=== PATIENT | female | born 1965 | race Caucasian/White ===

== ENCOUNTER 2022-02-13 10:03 | Outpatient (CLI) | payer BC | END 2022-02-13 10:04 | disposition home or self-care (01) | LOC: NM 10:03 | PROVIDERS: ATTEND Internal Medicine | DX: G95.9 Disease of spinal cord, unspecified (principal) | CPT/HCPCS: 78306; A9503 ==

== ENCOUNTER 2022-03-04 10:14 | Outpatient (CLI) | payer BC | END 2022-03-04 10:15 | disposition home or self-care (01) | LOC: BICMAMMO 10:14 | PROVIDERS: ATTEND Internal Medicine | DX: N64.9 Disorder of breast, unspecified (principal); C79.51 Secondary malignant neoplasm of bone; N63.11 Unspecified lump in the right breast, upper outer quadrant; N63.21 Unspecified lump in the left breast, upper outer quadrant | CPT/HCPCS: 77066; G0279 ==

== ENCOUNTER → 2022-03-05 | Day surgery (SDC) | payer BC | END | disposition home or self-care (01) | LOC: BICULT 12:42 | PROVIDERS: ATTEND Internal Medicine | PROC: 0H9U3ZX Drainage of Left Breast, Percutaneous Approach, Diagnostic (ICD-10-PCS; principal; 2022-03-05) | DX: C50.412 Malignant neoplasm of upper-outer quadrant of left female breast (principal); N60.32 Fibrosclerosis of left breast; Z17.0 Estrogen receptor positive status [ER+] | CPT/HCPCS: 19083; 19084; 88305; 88342 ==

== ENCOUNTER 2022-07-10 08:39 | Outpatient (CLI) | payer BC | END 2022-07-10 08:40 | disposition home or self-care (01) | LOC: SCSMRI 08:39 | PROVIDERS: ATTEND Internal Medicine | DX: C79.51 Secondary malignant neoplasm of bone (principal); C50.919 Malignant neoplasm of unspecified site of unspecified female breast; M47.815 Spondylosis without myelopathy or radiculopathy, thoracolumbar region; M47.816 Spondylosis without myelopathy or radiculopathy, lumbar region; M47.817 Spondylosis without myelopathy or radiculopathy, lumbosacral region; M25.78 Osteophyte, vertebrae; M51.35 Other intervertebral disc degeneration, thoracolumbar region; M51.36 Other intervertebral disc degeneration, lumbar region; M51.37 Other intervertebral disc degeneration, lumbosacral region; M51.27 Other intervertebral disc displacement, lumbosacral region | CPT/HCPCS: 72158 ==

== ENCOUNTER 2022-08-31 08:40 | Outpatient (CLI) | payer BC ==
[2022-08-31] MEDS ORDERED: Magnevist 469MG/ML 20 ML VIAL ONE (09:25)
== END 2022-08-31 08:41 | disposition home or self-care (01) ==
LOC: MRI 08:40
PROVIDERS: ATTEND Internal Medicine
DX: C50.919 Malignant neoplasm of unspecified site of unspecified female breast (principal); C79.51 Secondary malignant neoplasm of bone; H81.4 Vertigo of central origin; R51.9 Headache, unspecified; J32.3 Chronic sphenoidal sinusitis
CPT/HCPCS: 70553; A9579

== ENCOUNTER 2022-09-04 10:05 | Outpatient (CLI) | payer BC ==
[2022-09-04] MEDS ORDERED: Iopamidol 370 76% 100 ML VIAL ONE (10:56)
== END 2022-09-04 10:06 | disposition home or self-care (01) ==
LOC: NM 10:05
PROVIDERS: ATTEND Internal Medicine
DX: C50.919 Malignant neoplasm of unspecified site of unspecified female breast (principal); C79.51 Secondary malignant neoplasm of bone; R91.1 Solitary pulmonary nodule
CPT/HCPCS: 71260; 74177; 78306; A9503

== ENCOUNTER 2022-12-10 09:40 | Outpatient (CLI) | payer BC ==
[2022-12-10] MEDS ORDERED: Magnevist 469MG/ML 20 ML VIAL ONE (13:46)
== END 2022-12-10 09:41 | disposition home or self-care (01) ==
LOC: MRI 09:40
PROVIDERS: ATTEND Internal Medicine
DX: C50.919 Malignant neoplasm of unspecified site of unspecified female breast (principal); C79.51 Secondary malignant neoplasm of bone; R90.89 Other abnormal findings on diagnostic imaging of central nervous system
CPT/HCPCS: 70553; A9579

== ENCOUNTER 2022-12-11 07:32 | Inpatient (IN) | payer BC ==
[2022-12-11 07:59] LABS: Hematocrit 26.7 % (36.0-47.0); Hemoglobin 9.9 g/dL (12.0-16.0); Mean Corpuscular HGB CONC 37.1 g/dL (32.0-36.0); Mean Corpuscular Hemoglobin 38.7 pg (27.0-31.0); Mean Corpuscular Volume 104.3 fl (78.0-98.0); Platelet Count 175 10x3/uL (130-400); RBC Distribution Width 14.2 % (11.5-14.5); Red Blood Cell (RBC) Count 2.56 mill/uL (4.20-5.40); White Blood Cell (WBC) Count 3.5 10x3/uL (4.8-10.8)
[2022-12-11 08:07] LABS: Delete Auto Diff?? YES; Manual Diff?? YES
[2022-12-11 08:24] LABS: ALT (SGPT) 11 U/L (8-55); AST (SGOT) 20 U/L (5-34); Albumin 4.3 g/dL (3.5-5.0); Alkaline Phosphatase 60 U/L (40-110); Anion Gap 25 mmol/L (10-20); BUN (Urea Nitrogen) 98 mg/dL (9.8-20.1); Bilirubin, Total 0.8 mg/dL (0.2-1.2); Calc. Creatinine Clearance 0 mL/min (70-130); Calcium 8.5 mg/dL (7.8-10.44); Carbon Dioxide 17 mmol/L (22-29); Chloride 90 mmol/L (98-107); Estimated GFR 4; Globulin 2.4 g/dL (2.4-3.5); Glucose 76 mg/dL (70-105); Potassium 3.7 mmol/L (3.5-5.1); Protein, Total 6.7 g/dL (6.0-8.3); Sodium 128 mmol/L (136-145)
[2022-12-11 08:31] LABS: Band 1 % (5-11); Lymphocytes 17 % (21-51); Neutrophil 77 % (42-75); Reactive Lymphocytes 2 % (0-10)
[2022-12-11 08:33] LABS: Macrocytosis MODERATE=16-30 cells (100X) (0-5/hpf)
[2022-12-11 08:36] LABS: Ovalocytes SLIGHT = 2-5 cells (100X) (0-1/hpf); Reflex for Review?? YES
[2022-12-11 08:38] LABS: Troponin I Less than 0.010 ng/mL (< 0.028)
[2022-12-11 09:11] LABS: Bacteria/HPF 2+ HPF (None Seen); Bilirubin Negative (Negative); Blood, Urine 1+ (Negative); CAUTI Indications for Culture Dysuria,urgency,freq; Clarity Turbid (Clear); Glucose, Urine (Dipstick) Normal (Negative); Ketone, Urine Negative (Negative); Leukocyte 75 Leu/uL (Negative); Nitrite Negative (Negative); Protein, Urine (Dipstick) 100 mg/dL (Neg-Trace); RBC/HPF 0-3 HPF (0-3); Specific Gravity, Urine 1.012 (1.002-1.036); Squamous Epithelial 0-3 HPF (0-3); Urobilinogen Normal mg/dL (Less than 2); WBC/HPF 21-50 HPF (0-3)
[2022-12-11 09:18] LABS: Urine Culture Reflex Yes Yes
[2022-12-11] MEDS ORDERED: Acetaminophen 500 MG TAB ONE (09:26)
[2022-12-11] MEDS ORDERED: cefTRIAXone (ROCEPHIN) 1 GM VIAL ONE (09:40)
[2022-12-11] MEDS ORDERED: Ondansetron ODT 4 MG TAB SL PRN (11:00)
[2022-12-11] MEDS ORDERED: Ondansetron PF 4 MG/2 ML Vial IVP PRN (11:00)
[2022-12-11] MEDS ORDERED: Sodium Chloride 0.9% 1,000 ML IV SCH ×2 (11:00→11:25)
[2022-12-11] MEDS ORDERED: Acetaminophen 325 MG TAB PO PRN (11:18)
[2022-12-11] MEDS ORDERED: Senokot S 8.6-50 MG TAB PO PRN (11:18)
[2022-12-11 12:20] LABS: Anion Gap 22 mmol/L (10-20); BUN (Urea Nitrogen) 91 mg/dL (9.8-20.1); Calc. Creatinine Clearance 7 mL/min (70-130); Calcium 7.5 mg/dL (7.8-10.44); Carbon Dioxide 14 mmol/L (22-29); Chloride 98 mmol/L (98-107); Estimated GFR 4; Glucose 64 mg/dL (70-105); Sodium 130 mmol/L (136-145)
[2022-12-11] MEDS ORDERED: Sodium Chloride 0.9% 500 ML IV SCH (15:15)
[2022-12-11] MEDS ORDERED: NOREPINEPHRINE 8 MG/250 ML-D5W 250 ML IVPB SCH (15:15)
[2022-12-11] MEDS: Sodium Bicarbonate 150 MEQ in Dextrose 5% in Water 1,000 ML FS SCH ×2 (15:56→21:46)
[2022-12-11] MEDS ORDERED: RENALLY IVPB PRN (16:28)
[2022-12-11] MEDS ORDERED: Sodium Bicarbonate 150 MEQ in Dextrose 5% in Water 1,000 ML IV SCH (19:45)
[2022-12-11] MEDS: Heparin 5,000 UNITS/ML VIAL SC SCH (20:08)
[2022-12-11 20:44] LABS: Anion Gap 25 mmol/L (10-20); BUN (Urea Nitrogen) 93 mg/dL (9.8-20.1); Calc. Creatinine Clearance 8 mL/min (70-130); Calcium 7.2 mg/dL (7.8-10.44); Carbon Dioxide 12 mmol/L (22-29); Chloride 96 mmol/L (98-107); Estimated GFR 5; Glucose 122 mg/dL (70-105); Potassium 3.8 mmol/L (3.5-5.1); Sodium 129 mmol/L (136-145)
[2022-12-11] MEDS ORDERED: Famotidine 20 MG TAB PO SCH (20:45)
[2022-12-11] MEDS ORDERED: Sodium Bicarb 50 MEQ/50 ML VIAL IVP SCH (21:15)
[2022-12-11] MEDS: Ondansetron PF 4 MG/2 ML Vial IVP PRN (21:46)
[2022-12-12 03:10] LABS: #Monocytes 0.3 thou/uL (0.11-0.59); #Neutrophils 1.7 thou/uL (1.40-6.50); %Basophils 0.4 % (0.0-1.0); %Lymphocytes 17.4 % (21.0-51.0); %Monocytes 10.7 % (0.0-10.0); %Neutrophils 71.1 % (42.0-75.0); Hematocrit 21.8 % (36.0-47.0); Hemoglobin 8.5 g/dL (12.0-16.0); Hemoglobin A1c 5.1 % (4.0-6.0); Mean Corpuscular Hemoglobin 38.5 pg (27.0-31.0); Mean Platelet Volume 9.3 fL (7.4-10.4); Platelet Count 170 10x3/uL (130-400); RBC Distribution Width 13.9 % (11.5-14.5); Red Blood Cell (RBC) Count 2.21 mill/uL (4.20-5.40); White Blood Cell (WBC) Count 2.4 10x3/uL (4.8-10.8)
[2022-12-12 03:15] LABS: Mean Corpuscular Volume 98.6 fl (78.0-98.0)
[2022-12-12 03:43] LABS: ALT (SGPT) 12 U/L (8-55); AST (SGOT) 23 U/L (5-34); Albumin 3.2 g/dL (3.5-5.0); Alkaline Phosphatase 49 U/L (40-110); Anion Gap 21 mmol/L (10-20); BUN (Urea Nitrogen) 91 mg/dL (9.8-20.1); Bilirubin, Total 0.5 mg/dL (0.2-1.2); Calc. Creatinine Clearance 9 mL/min (70-130); Calcium 7.2 mg/dL (7.8-10.44); Carbon Dioxide 21 mmol/L (22-29); Chloride 94 mmol/L (98-107); Estimated GFR 5; Globulin 2.1 g/dL (2.4-3.5); Glucose 124 mg/dL (70-105); Potassium 3.1 mmol/L (3.5-5.1); Protein, Total 5.3 g/dL (6.0-8.3); Sodium 133 mmol/L (136-145)
[2022-12-12] MEDS: Sodium Bicarbonate 150 MEQ in Dextrose 5% in Water 1,000 ML IV SCH ×3 (04:48→18:15)
[2022-12-12] MEDS ORDERED: Potassium Chloride 20 MEQ in Premix Bag 1 BAG IVPB SCH (07:15)
[2022-12-12] MEDS: Ondansetron PF 4 MG/2 ML Vial IVP PRN ×2 (07:50→18:11)
[2022-12-12] MEDS: Heparin 5,000 UNITS/ML VIAL SC SCH ×2 (08:13→20:21)
[2022-12-12] MEDS ORDERED: Letrozole 2.5 MG TAB PO SCH (09:00)
[2022-12-12] MEDS ORDERED: cefTRIAXone\\ROCEPHIN 1 GM in Sodium Chloride 0.9% 100 ML IVPB SCH (10:00)
[2022-12-12] MEDS: Hydrocortisone Sod Succ/PF 100 mg/2 ml Vial IVP SCH ×2 (13:19→20:22)
[2022-12-12] MEDS ORDERED: Famotidine 20 MG TAB PO SCH (21:00)
[2022-12-12 21:24] LABS: Anion Gap 20 mmol/L (10-20); BUN (Urea Nitrogen) 70 mg/dL (9.8-20.1); Calc. Creatinine Clearance 12 mL/min (70-130); Carbon Dioxide 34 mmol/L (22-29); Chloride 87 mmol/L (98-107); Estimated GFR 7; Glucose 159 mg/dL (70-105); Potassium 2.9 mmol/L (3.5-5.1); Sodium 138 mmol/L (136-145)
[2022-12-12 21:30] LABS: Calcium 6.9 mg/dL (7.8-10.44); Magnesium 0.9 mg/dL (1.6-2.6)
[2022-12-12] MEDS ORDERED: Magnesium Sulfate 4 GM in Sodium Chloride 0.9% 250 ML 250 ML IVPB SCH (21:30)
[2022-12-12] MEDS ORDERED: Calcium Chloride 1 GM/10 ML Abboject SYRINGE IVP SCH ×2 (21:45→23:45)
[2022-12-12] MEDS ORDERED: Magnesium Sulfate In Water 4 GM in Premix Bag 1 BAG IVPB SCH (21:45)
[2022-12-12] MEDS: Cefepime 1 GM in Sodium Chloride 0.9% 100 ML IVPB SCH (23:42)
[2022-12-13] MEDS: Hydrocortisone Sod Succ/PF 100 mg/2 ml Vial IVP SCH ×4 (02:17→21:41)
[2022-12-13] MEDS ORDERED: Sodium Chloride 0.9% 1,000 ML IV SCH ×2 (08:00→09:36)
[2022-12-13] MEDS: Heparin 5,000 UNITS/ML VIAL SC SCH ×2 (09:15→20:10)
[2022-12-13 10:08] LABS: BUN (Urea Nitrogen) 47 mg/dL (9.8-20.1); Calc. Creatinine Clearance 16 mL/min (70-130); Calcium 7.6 mg/dL (7.8-10.44); Estimated GFR 10; Glucose 193 mg/dL (70-105); Magnesium 2.1 mg/dL (1.6-2.6)
[2022-12-13 10:20] LABS: Sodium 138 mmol/L (136-145)
[2022-12-13 10:22] LABS: Anion Gap 22 mmol/L (10-20); Carbon Dioxide 34 mmol/L (22-29); Chloride 85 mmol/L (98-107); Potassium 2.6 mmol/L (3.5-5.1)
[2022-12-13] MEDS ORDERED: Potassium Chloride 40 MEQ in Premix Bag 1 BAG IVPB SCH (10:30)
[2022-12-13] MEDS: Sodium Chloride 0.9% 1,000 ML IV SCH ×2 (11:00→17:00)
[2022-12-13] MEDS ORDERED: Potassium Chloride 10 MEQ in Premix Bag 1 BAG IVPB SCH (11:00)
[2022-12-13] MEDS: Ondansetron PF 4 MG/2 ML Vial IVP PRN ×3 (11:40→20:16)
[2022-12-13] MEDS ORDERED: Potassium Chloride 20 MEQ in Premix Bag 1 BAG IVPB SCH (14:00)
[2022-12-13] MEDS ORDERED: Potassium Chloride 20 MEQ TAB PO SCH ×3 (14:45→21:00)
[2022-12-13] MEDS ORDERED: Albumin 25% 25 GM/100 ML BOT IVPB SCH (19:45)
[2022-12-14] MEDS: Cefepime 1 GM in Sodium Chloride 0.9% 100 ML IVPB SCH (00:33)
[2022-12-14] MEDS: Sodium Chloride 0.9% 1,000 ML IV SCH ×2 (00:38→10:44)
[2022-12-14] MEDS: Hydrocortisone Sod Succ/PF 100 mg/2 ml Vial IVP SCH ×2 (03:18→10:44)
[2022-12-14 03:57] LABS: #Monocytes 0.1 thou/uL (0.11-0.59); #Neutrophils 2.7 thou/uL (1.40-6.50); %Basophils 0.3 % (0.0-1.0); %Lymphocytes 7.9 % (21.0-51.0); %Monocytes 4.1 % (0.0-10.0); %Neutrophils 86.4 % (42.0-75.0); Hematocrit 21.3 % (36.0-47.0); Hemoglobin 8.1 g/dL (12.0-16.0); Mean Corpuscular Hemoglobin 38.4 pg (27.0-31.0); Mean Corpuscular Volume 100.9 fl (78.0-98.0); Mean Platelet Volume 9.5 fL (7.4-10.4); Platelet Count 146 10x3/uL (130-400); RBC Distribution Width 13.8 % (11.5-14.5); Red Blood Cell (RBC) Count 2.11 mill/uL (4.20-5.40); White Blood Cell (WBC) Count 3.2 10x3/uL (4.8-10.8)
[2022-12-14 04:20] LABS: ALT (SGPT) 13 U/L (8-55); AST (SGOT) 21 U/L (5-34); Albumin 3.4 g/dL (3.5-5.0); Alkaline Phosphatase 47 U/L (40-110); Anion Gap 13 mmol/L (10-20); BUN (Urea Nitrogen) 29 mg/dL (9.8-20.1); Bilirubin, Total 0.3 mg/dL (0.2-1.2); Calc. Creatinine Clearance 28 mL/min (70-130); Calcium 7.2 mg/dL (7.8-10.44); Carbon Dioxide 31 mmol/L (22-29); Chloride 100 mmol/L (98-107); Estimated GFR 18; Globulin 2.2 g/dL (2.4-3.5); Glucose 139 mg/dL (70-105); Magnesium 1.4 mg/dL (1.6-2.6); Potassium 2.8 mmol/L (3.5-5.1); Protein, Total 5.6 g/dL (6.0-8.3); Sodium 141 mmol/L (136-145)
[2022-12-14 04:21] LABS: Phosphorus 1.3 mg/dL (2.3-4.7)
[2022-12-14] MEDS ORDERED: Magnesium 2 GM/50 ML(in water) 2 GM in Premix Bag 1 BAG IVPB SCH (05:15)
[2022-12-14] MEDS ORDERED: Potassium Phosphate 15 MMOL in Sodium Chloride 0.9% 250 ML 250 ML IVPB SCH ×2 (05:30→10:30)
[2022-12-14] MEDS: DULoxetine 60 MG CAP PO SCH (08:49)
[2022-12-14] MEDS: Thyroid 60 MG TAB PO SCH (08:50)
[2022-12-14] MEDS: Heparin 5,000 UNITS/ML VIAL SC SCH ×2 (08:50→20:26)
[2022-12-14] MEDS ORDERED: Potassium Chloride 20 MEQ TAB PO SCH (11:05)
[2022-12-14] MEDS: cefTRIAXone\\ROCEPHIN 1 GM in Sodium Chloride 0.9% 100 ML IVPB SCH (12:42)
[2022-12-14] MEDS: PHOS-NAK 1 PKT PACK PO SCH ×3 (12:44→20:26)
[2022-12-14 16:01] LABS: Potassium 3.1 mmol/L (3.5-5.1)
[2022-12-14] MEDS: Potassium Chloride 20 MEQ TAB PO SCH (16:58)
[2022-12-14 21:27] LABS: #Monocytes 0.3 thou/uL (0.11-0.59); #Neutrophils 2.4 thou/uL (1.40-6.50); %Basophils 0.6 % (0.0-1.0); %Eosinophils 0.3 % (0.0-10.0); %Lymphocytes 19.9 % (21.0-51.0); %Monocytes 8.7 % (0.0-10.0); %Neutrophils 69.6 % (42.0-75.0); Hematocrit 21.3 % (36.0-47.0); Hemoglobin 7.7 g/dL (12.0-16.0); Mean Corpuscular HGB CONC 36.2 g/dL (32.0-36.0); Mean Corpuscular Hemoglobin 38.3 pg (27.0-31.0); Mean Platelet Volume 9.2 fL (7.4-10.4); Platelet Count 133 10x3/uL (130-400); Red Blood Cell (RBC) Count 2.01 mill/uL (4.20-5.40); White Blood Cell (WBC) Count 3.5 10x3/uL (4.8-10.8)
[2022-12-14] MEDS ORDERED: Sodium Chloride 0.9% 500 ML IV SCH (21:30)
[2022-12-14 21:50] LABS: ALT (SGPT) 43 U/L (8-55); AST (SGOT) 58 U/L (5-34); Albumin 3.4 g/dL (3.5-5.0); Alkaline Phosphatase 50 U/L (40-110); Anion Gap 13 mmol/L (10-20); BUN (Urea Nitrogen) 17 mg/dL (9.8-20.1); Bilirubin, Total 0.2 mg/dL (0.2-1.2); Calc. Creatinine Clearance 46 mL/min (70-130); Calcium 7.2 mg/dL (7.8-10.44); Carbon Dioxide 24 mmol/L (22-29); Chloride 108 mmol/L (98-107); Estimated GFR 34; Globulin 2.2 g/dL (2.4-3.5); Glucose 110 mg/dL (70-105); Potassium 3.4 mmol/L (3.5-5.1); Protein, Total 5.6 g/dL (6.0-8.3); Sodium 142 mmol/L (136-145)
[2022-12-14 23:19] LABS: Potassium, Urine 30.5 mmol/L
[2022-12-15] MEDS: PHOS-NAK 1 PKT PACK PO SCH (00:27)
[2022-12-15] MEDS: Thyroid 60 MG TAB PO SCH (05:21)
[2022-12-15 06:06] LABS: #Monocytes 0.3 thou/uL (0.11-0.59); #Neutrophils 1.7 thou/uL (1.40-6.50); %Eosinophils 0.7 % (0.0-10.0); %Lymphocytes 27.4 % (21.0-51.0); %Monocytes 10.4 % (0.0-10.0); %Neutrophils 59.8 % (42.0-75.0); Hematocrit 22.9 % (36.0-47.0); Hemoglobin 8.1 g/dL (12.0-16.0); Mean Corpuscular HGB CONC 35.4 g/dL (32.0-36.0); Mean Corpuscular Hemoglobin 38.4 pg (27.0-31.0); Mean Corpuscular Volume 108.5 fl (78.0-98.0); Mean Platelet Volume 9.4 fL (7.4-10.4); Platelet Count 146 10x3/uL (130-400); RBC Distribution Width 14.4 % (11.5-14.5); Red Blood Cell (RBC) Count 2.11 mill/uL (4.20-5.40); White Blood Cell (WBC) Count 2.9 10x3/uL (4.8-10.8)
[2022-12-15 06:28] LABS: Magnesium 1.1 mg/dL (1.6-2.6)
[2022-12-15 06:44] LABS: ALT (SGPT) 54 U/L (8-55); AST (SGOT) 58 U/L (5-34); Albumin 3.6 g/dL (3.5-5.0); Alkaline Phosphatase 52 U/L (40-110); Anion Gap 13 mmol/L (10-20); BUN (Urea Nitrogen) 13 mg/dL (9.8-20.1); Bilirubin, Total 0.2 mg/dL (0.2-1.2); Calc. Creatinine Clearance 52 mL/min (70-130); Calcium 7.2 mg/dL (7.8-10.44); Carbon Dioxide 24 mmol/L (22-29); Chloride 109 mmol/L (98-107); Estimated GFR 38; Globulin 2.2 g/dL (2.4-3.5); Glucose 103 mg/dL (70-105); Phosphorus 2.5 mg/dL (2.3-4.7); Potassium 3.3 mmol/L (3.5-5.1); Protein, Total 5.8 g/dL (6.0-8.3); Sodium 143 mmol/L (136-145)
[2022-12-15] MEDS: DULoxetine 60 MG CAP PO SCH (08:35)
[2022-12-15] MEDS: Heparin 5,000 UNITS/ML VIAL SC SCH ×2 (08:35→21:23)
[2022-12-15] MEDS: Potassium Chloride 20 MEQ TAB PO SCH ×2 (08:35→17:59)
[2022-12-15] MEDS ORDERED: Potassium Chloride 20 MEQ TAB PO SCH (09:15)
[2022-12-15] MEDS: cefTRIAXone\\ROCEPHIN 1 GM in Sodium Chloride 0.9% 100 ML IVPB SCH (10:56)
[2022-12-15] MEDS ORDERED: Magnesium 2 GM/50 ML(in water) 2 GM in Premix Bag 1 BAG IVPB SCH (13:00)
[2022-12-16] MEDS: Thyroid 60 MG TAB PO SCH (06:50)
[2022-12-16 07:28] LABS: Hematocrit 22.8 % (36.0-47.0); Hemoglobin 7.8 g/dL (12.0-16.0); Mean Corpuscular HGB CONC 34.2 g/dL (32.0-36.0); Mean Corpuscular Hemoglobin 38.4 pg (27.0-31.0); Mean Corpuscular Volume 112.3 fl (78.0-98.0); Mean Platelet Volume 9.7 fL (7.4-10.4); Platelet Count 140 10x3/uL (130-400); RBC Distribution Width 14.5 % (11.5-14.5); Red Blood Cell (RBC) Count 2.03 mill/uL (4.20-5.40); White Blood Cell (WBC) Count 2.3 10x3/uL (4.8-10.8)
[2022-12-16 07:29] LABS: Delete Auto Diff?? YES; Manual Diff?? YES
[2022-12-16 07:43] LABS: Anion Gap 10 mmol/L (10-20); BUN (Urea Nitrogen) 10 mg/dL (9.8-20.1); Calc. Creatinine Clearance 75 mL/min (70-130); Calcium 7.5 mg/dL (7.8-10.44); Carbon Dioxide 22 mmol/L (22-29); Chloride 113 mmol/L (98-107); Estimated GFR 60; Glucose 98 mg/dL (70-105); Potassium 3.9 mmol/L (3.5-5.1); Sodium 141 mmol/L (136-145)
[2022-12-16 08:01] LABS: Anisocytosis MODERATE=16-30 cells HPF (0-5); Band 6 % (5-11); CellaVision Operator ID lab.dlt; Eosinophils 3 % (0-10); Hypochromia SLIGHT = 6-15 cells HPF (0-5); Lymphocytes 26 % (21-51); Macrocytosis SLIGHT = 6-15 cells HPF (0-5); Monocytes 4 % (0-10); Neutrophil 56 % (42-75); Platelet Adequacy Comment Platelets Normal; Poikilocytosis SLIGHT = 6-15 cells HPF (0-5); Polychromasia SLIGHT = 2-3 cells HPF (0-2); Tear Drops SLIGHT = 2-5 cells HPF (0-1); Total Cell Count 100
[2022-12-16] MEDS ORDERED: Cosyntropin 250 MCG VIAL SLOW IVP SCH (08:15)
[2022-12-16] MEDS: DULoxetine 60 MG CAP PO SCH (08:15)
[2022-12-16] MEDS: Heparin 5,000 UNITS/ML VIAL SC SCH ×2 (08:16→21:36)
[2022-12-16] MEDS: Potassium Chloride 20 MEQ TAB PO SCH (08:16)
[2022-12-16] MEDS: Magnesium Oxide 400 MG TAB PO SCH (08:16)
[2022-12-16] MEDS ORDERED: Magnesium 2 GM/50 ML(in water) 2 GM in Premix Bag 1 BAG IVPB SCH (09:00)
[2022-12-16 09:31] LABS: Free T4 (Free Thyroxine) 1.01 ng/dL (0.70-1.48)
[2022-12-16 12:10] VITALS: BMI 31.4
[2022-12-16] MEDS: cefTRIAXone\\ROCEPHIN 1 GM in Sodium Chloride 0.9% 100 ML IVPB SCH (13:20)
[2022-12-16] MEDS: Ondansetron PF 4 MG/2 ML Vial IVP PRN (14:00)
[2022-12-17] MEDS: Thyroid 60 MG TAB PO SCH (07:02)
[2022-12-17 07:08] LABS: #Monocytes 0.2 thou/uL (0.11-0.59); #Neutrophils 1.6 thou/uL (1.40-6.50); %Basophils 0.8 % (0.0-1.0); %Eosinophils 1.6 % (0.0-10.0); %Lymphocytes 24.5 % (21.0-51.0); %Neutrophils 63.9 % (42.0-75.0); Hematocrit 22.3 % (36.0-47.0); Hemoglobin 7.9 g/dL (12.0-16.0); Mean Corpuscular HGB CONC 35.4 g/dL (32.0-36.0); Mean Corpuscular Hemoglobin 38.2 pg (27.0-31.0); Mean Corpuscular Volume 107.7 fl (78.0-98.0); Mean Platelet Volume 9.7 fL (7.4-10.4); Platelet Count 143 10x3/uL (130-400); Red Blood Cell (RBC) Count 2.07 mill/uL (4.20-5.40); White Blood Cell (WBC) Count 2.5 10x3/uL (4.8-10.8)
[2022-12-17 07:28] LABS: Anion Gap 10 mmol/L (10-20); BUN (Urea Nitrogen) 12 mg/dL (9.8-20.1); Calc. Creatinine Clearance 73 mL/min (70-130); Calcium 8.3 mg/dL (7.8-10.44); Carbon Dioxide 20 mmol/L (22-29); Chloride 114 mmol/L (98-107); Estimated GFR 58; Glucose 95 mg/dL (70-105); Magnesium 1.2 mg/dL (1.6-2.6); Potassium 3.9 mmol/L (3.5-5.1); Sodium 140 mmol/L (136-145)
[2022-12-17] MEDS: Rosuvastatin 20 MG TAB PO SCH (08:23)
[2022-12-17] MEDS: Magnesium Oxide 400 MG TAB PO SCH (08:23)
[2022-12-17] MEDS: DULoxetine 60 MG CAP PO SCH (08:23)
[2022-12-17] MEDS: Heparin 5,000 UNITS/ML VIAL SC SCH ×2 (08:23→22:44)
[2022-12-17] MEDS ORDERED: Magnesium Sulfate 3 GM in Sodium Chloride 0.9% 100 ML IVPB SCH (09:00)
[2022-12-17] MEDS: cefTRIAXone\\ROCEPHIN 1 GM in Sodium Chloride 0.9% 100 ML IVPB SCH (12:41)
[2022-12-18 06:55] LABS: Magnesium 1.2 mg/dL (1.6-2.6)
[2022-12-18] MEDS: Thyroid 60 MG TAB PO SCH (06:55)
[2022-12-18 07:49] VITALS: BP 109/72; TEMP 98
[2022-12-18] MEDS ORDERED: Magnesium Sulfate In Water 4 GM in Premix Bag 1 BAG IVPB SCH (08:15)
[2022-12-18] MEDS: Heparin 5,000 UNITS/ML VIAL SC SCH (09:35)
[2022-12-18] MEDS: Rosuvastatin 20 MG TAB PO SCH (09:36)
[2022-12-18] MEDS: Magnesium Oxide 400 MG TAB PO SCH (09:36)
[2022-12-18] MEDS: DULoxetine 60 MG CAP PO SCH (09:36)
[2022-12-18] MEDS: cefTRIAXone\\ROCEPHIN 1 GM in Sodium Chloride 0.9% 100 ML IVPB SCH (10:52)
== END 2022-12-18 15:30 | disposition home or self-care (01) | DRG 871 ==
LOC: ERS 07:32 → SJJU 10:36 → CCU 16:31 → T4-A 12-14 14:31
PROVIDERS: ADMIT Internal Medicine Geriatric Medicine; ATTEND Internal Medicine
PROC: 3E03329 Introduction of Other Anti-infective into Peripheral Vein, Percutaneous Approach (ICD-10-PCS; principal; 2022-12-11)
PROC: 3E033XZ Introduction of Vasopressor into Peripheral Vein, Percutaneous Approach (ICD-10-PCS; 2022-12-11)
PROC: 30233J1 Transfusion of Nonautologous Serum Albumin into Peripheral Vein, Percutaneous Approach (ICD-10-PCS; 2022-12-13)
DX: A41.9 Sepsis, unspecified organism (principal); N17.0 Acute kidney failure with tubular necrosis; R65.21 Severe sepsis with septic shock; R57.1 Hypovolemic shock; E87.1 Hypo-osmolality and hyponatremia; C79.51 Secondary malignant neoplasm of bone; E87.20 Acidosis, unspecified; E87.3 Alkalosis; N39.0 Urinary tract infection, site not specified; E78.00 Pure hypercholesterolemia, unspecified; K59.00 Constipation, unspecified; I95.9 Hypotension, unspecified; E86.0 Dehydration; C50.912 Malignant neoplasm of unspecified site of left female breast; D64.9 Anemia, unspecified; R73.03 Prediabetes; K21.9 Gastro-esophageal reflux disease without esophagitis; F41.1 Generalized anxiety disorder; E78.2 Mixed hyperlipidemia; E83.51 Hypocalcemia; E87.6 Hypokalemia; E83.42 Hypomagnesemia; B96.20 Unspecified Escherichia coli [E. coli] as the cause of diseases classified elsewhere; E83.39 Other disorders of phosphorus metabolism; Z88.5 Allergy status to narcotic agent; Z88.8 Allergy status to other drugs, medicaments and biological substances; Z79.899 Other long term (current) drug therapy; Z79.84 Long term (current) use of oral hypoglycemic drugs
CPT/HCPCS: 36415; 74176; 80048; 80053; 80400; 81001; 82024; 82088; 82306; 82436; 82530; 82533; 82607; 83036; 83690; 83735; 83880; 84100; 84133; 84145; 84300; 84439; 84443; 84484; 85025; 85060; 85379; 87077; 87086; 87186; 93005; J0692; J0696; J0834; J1644; J1720; J2405; J3475; J3480; J3490; J7030; J7050; J7070

== ENCOUNTER 2023-03-31 08:08 | Outpatient (CLI) | payer BC ==
[2023-03-31] MEDS ORDERED: Iopamidol 370 76% 100 ML VIAL ONE (08:55)
== END 2023-03-31 08:09 | disposition home or self-care (01) ==
LOC: CT 08:08
PROVIDERS: ATTEND Internal Medicine
DX: C79.51 Secondary malignant neoplasm of bone (principal); C50.919 Malignant neoplasm of unspecified site of unspecified female breast; R92.2 Inconclusive mammogram; R91.8 Other nonspecific abnormal finding of lung field
CPT/HCPCS: 71260; 74177; 78306; A9503

== ENCOUNTER 2024-03-08 08:51 | Outpatient (CLI) | payer BC ==
[2024-03-08] MEDS ORDERED: Iopamidol 370 76% 100 ML VIAL ONE (10:21)
== END 2024-03-08 08:52 | disposition home or self-care (01) ==
LOC: CT 08:51
PROVIDERS: ATTEND Internal Medicine
DX: C79.51 Secondary malignant neoplasm of bone (principal); C50.919 Malignant neoplasm of unspecified site of unspecified female breast
CPT/HCPCS: 71260; 74177; 78306; A9503; Q9967